=== PATIENT | female | born 1970 | race Caucasian/White ===

== ENCOUNTER → 2020-07-15 | Outpatient (CLI) | payer SELFPAY ==
[~2020-07-15] MED LIST: COLA100C2; FERR325T; METAMUCIL; MILKSUS; TYLENOL EXTRA STREN
== END ==
LOC: M LABSMTC 10:24
PROVIDERS: ATTEND Pediatrics
DX: Z20.822 Contact with and (suspected) exposure to COVID-19 (principal)